=== PATIENT | female | born 2000 | race Caucasian/White ===

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

== ENCOUNTER 2023-07-29 22:27 | Emergency (ER) | payer OTHER, SELFPAY ==
[2023-07-29 22:34] VITALS: BP 121/75; PULSE 70; RESP 16; TEMP 36.8; O2SAT 98; BMI 30.7
--- NOTE | 2023-07-29 22:59 | ED_ITS ---
Documented by User: SHARLA Arnold 07/30/23 00:42 HPI - Abdominal Pain 2 General: Chief Complaint: Abdominal Pain Stated Complaint: Rt Side Pain Time Seen by Provider: 07/29/23 22:51 Source: patient Mode of arrival: ambulatory Limitations: no limitations History of Present Illness: Patient is a 22-year-old female presenting to the emergency department complaining of right lower quadrant abdominal pain beginning last night. Patient notes that the pain began periumbilically and has now radiated down into the right lower quadrant. It has worsened since onset last night, and she notes being seen for the pain at [facility] urgent care this morning and only being tested with a urinalysis. She states that since the pain has only worsened and she is now having some nausea and subjective low-grade temperatures. She states that the pain feels like someone is stabbing her in the right lower quadrant, and nothing she has tried has helped alleviate her pain. She denies any urinary symptoms, back pain, vomiting, changes in bowel habits, or any other symptoms at this time. Patient notes that she still has her appendix and gallbladder. MD elicited complaint: abdominal pain Pertinent past history: none Onset (ago): day(s) (1) Pain Consistency: constant Location: Periumbilical and RLQ Severity: moderate Quality: stabbing Relieving factors: nothing Associated Symptoms: Reports fever(s) and nausea; Denies chills, constipation, diarrhea, dysuria and vomiting Review of Systems 2 General: Reports: 10 or more systems reviewed and unremarkable except in HPI and below Const: Reports: fever(s); Denies: chills or fatigue Eyes: Denies: change in vision ENMT: Denies: throat pain, ear or mastoid pain or nasal discharge Card: Denies: chest pain, palpitations, swelling of feet/ankles or lightheadedness Resp: Denies: dyspnea, productive cough or wheezing GI: Reports: abdominal pain and nausea; Denies: vomiting, diarrhea or constipation : Denies: flank pain, difficulty voiding, dysuria or urinary frequency Musc: Denies: neck pain, back pain or joint pain Skin/Breast: Denies: rash Neuro: Denies: headache(s), numbness in extremities or weakness in extremities PFSH ED 2 PFSH: Medical History Depression Patient denies medical problems Denies history of htn,dm,heart,lung,liver,kidney,thyroid,dvt/pe Surgical History History of tonsillectomy and adenoidectomy (~2006) Family History Grandmother Breast cancer Maternal Hypercholesterolemia maternal Hypertension maternal Thyroid disease Maternal Family/Other Colon cancer Maternal Uncle Maternal Great uncle Diabetes maternal aunt Heart disease Maternal uncle Hypercholesterolemia maternal uncle Hypertension Maternal uncle Mother Hypercholesterolemia Hypertension Grandfather Hypercholesterolemia maternal Hypertension maternal Denies family history of Uterine cancer Social History Smoking and tobacco/nicotine status: never used tobacco/nicotine Alcohol intake: current Alcohol intake frequency: holidays/special occasions only Substance/Drug Use: never Additional social history: - Tobacco use: Never Alcohol use: Socially Drug use: Never Physical Exam 2 Const: COMMON NORMALS: no acute distress, average body habitus, patient oriented x3, no limitations, healthy appearing, alert and well nourished G ENERAL APPEARANCE: cooperative and comfortable ORIENTATION/CONSCIOUSNESS: Yes awake HENMT: COMMON NORMALS: normocephalic, atraumatic, hearing grossly normal bilaterally, external ears normal, Normal external nose present, Normal nasal mucous membranes and turbinates present and moist oral mucous membranes HEAD & SCALP: normocephalic and atraumatic NOSE: Normal external nose present and Normal nasal mucous membranes and turbinates present EXTERNAL EAR: Yes external ears normal Eye: COMMON NORMALS: Equal, round and reactive pupils present, EOMs intact bilaterally, conjunctivae normal and normal visual lester by confrontation C ONJUNCTIVA: Yes conjunctivae normal PUPIL: Yes Equal, round and reactive pupils present Neck/C-Spine: COMMON NORMALS: full ROM, supple, no meningeal signs and no JVD Resp: COMMON NORMALS: normal respiratory effort, No retractions, No use of accessory muscles and clear to auscultation bilaterally AUSCULTATION: clear to auscultation bilaterally, no crackles, no rales, no rhonchi and no wheezes Cardio: COMMON NORMALS: no JVD, regular rate, regular rhythm, S1 normal heart sound present, S2 normal heart sound present, No gallops present (Cardio), No clicks present (Cardio), No murmurs present (Cardio), No rub (Cardio) and Peripheral pulses 2+ throughout RATE: regular rate RHYTHM: regular rhythm HEART SOUNDS: S1 normal heart sound present and S2 normal heart sound present PERIPHERAL PULSES: Peripheral pulses 2+ throughout GI: COMMON NORMALS: Normal to inspection, nondistended, normoactive bowel sounds present, Soft to palpation, No hepatosplenomegaly present and no masses AUSCULTATION: Yes normoactive bowel sounds PALPATION: Yes Soft to palpation, Yes Tenderness to palpation present (GI) Details: RLQ (Positive McBurney's point tenderness, positive Rovsing's), No Guarding due to palpation present (GI), No Rigid due to palpation and Yes No hepatosplenomegaly present RECTAL EXAM: d eferred : COMMON NORMALS: Yes no CVA tenderness BLADDER/KIDNEY EXAM: Yes no CVA tenderness Back/Pelvis: COMMON NORMALS: no CVA tenderness Extremity: COMMON NORMALS: normal to inspection and full ROM Neuro: COMMON NORMALS: patient oriented x3, moves all extremities, no focal motor deficits and no sensory deficits noted SENSORIUM/ORIENTATION: Yes alert MENINGEAL SIGNS: Yes no meningeal signs Psych: COMMON NORMALS: mental status grossly normal, cooperative and speech normal SPEECH: Yes normal speech Skin: COMMON NORMALS: no rashes or lesions noted GENERAL SKIN EXAM: no rashes or lesions noted Course 2 Vital Signs: Vital signs: Vital Signs Temperature 98.3 F 07/30/23 00:49 Pulse Rate 70 07/30/23 00:49 Respiratory Rate 16 07/30/23 00:49 Blood Pressure 121/75 07/30/23 00:49 Pulse Oximetry 98 07/30/23 00:49 Oxygen Delivery Me thod Room Air 07/29/23 22:34 MDM - Abdominal Pain Medical Decision Making This patient seen and evaluated in the emergency department today due to 1 day of right lower quadrant pain. Patient had previously been assessed at [facility], but was sent home after only giving UA. On arrival patient's vitals normal and she was afebrile. Exam positive for right lower quadrant tenderness palpation, specifically over McBurney's point and with an associated Rovsing's. CBC and CMP unremarkable. Lipase normal. negative. Clinically I was suspicious of an appendicitis, however CT demonstrated normal appendix and was ultimately unremarkable. There was evidence of a small ovarian cyst with tiny amount of cul-de-sac fluid, and I believe patient's pain could potentially be due to a ruptured ovarian cyst. Additionally her UA showed some evidence of a urinary tract infection, which could also contribute to some pain. Regardless, we will start the patient on an antibiotic and informed her to return if she develops any new or concerning symptoms. Patient agrees with this plan and will be discharged home. Lab Data I reviewed the patient's lab results. 07/29/23 23:15 07/29/23 23:32 Labs/Radiology: Radiology Impressions Abdomen/Pelvis CT 07/29/23 22:59 IMPRESSION: 1. Normal appendix. 2. Gastric distension. 3. No free air or significant bowel distention. 4. The right ovary contains a 22 x 14 x 20 mm dominant follicle versus very small cyst. Trace amount of cul-de-sac fluid. 5. Other findings discussed above. Laboratory Results WBC 10.49 10^3/uL (4.5-13.0) 07/29/23 23:15 RBC 4.80 10^6/uL (3.85-5.65) 07/29/23 23:15 Hgb 14.70 g/dL (12.4-14.8) 07/29/23 23:15 Hct 44.2 % (36-47) 07/29/23 23:15 MCV 92.1 fl (85-98) 07/29/23 23:15 MCH 30.6 pg (27-33) 07/29/23 23:15 MCHC 33.3 g/dL (30-55) 07/29/23 23:15 RDW 17.1 % (12.1-15.1) H 07/29/23 23:15 Plt Count 416 10^3/cmm (157-399) H 07/29/23 23:15 MPV 9.9 fL (7.4-10.4) 07/29/23 23:15 Neut % (Auto) 61.3 % 07/29/23 23:15 Lymph % (Auto) 32.2 % 07/29/23 23:15 [place] % (Auto) 4.9 % 07/29/23 23:15 Eos % (Auto) 1.0 % 07/29/23 23:15 Baso % (Auto) 0.3 % 07/29/23 23:15 Neut # (Auto) 6.43 10^3/uL (1.8-8.0) 07/29/23 23:15 Lymph # (Auto) 3.4 10^3/uL (1.5-6.5) 07/29/23 23:15 [place] # (Auto) 0.5 10^3/uL (0.2-0.9) 07/29/23 23:15 Eos # (Auto) 0.1 10^3/uL (0.0-0.8) 07/29/23 23:15 Baso # (Auto) 0.0 10^3/uL (0.0-0.1) 07/29/23 23:15 Nucleated RBC % (auto) 0 % 07/29/23 23:15 Nucleated RBCs # 0.0 /100WBC 07/29/23 23:15 Sodium 139 mmol/L (136-145) 07/29/23 23:32 Potassium 4.0 mmol/L (3.5-5.1) 07/29/23 23:32 Chloride 104 mmol/L (98-107) 07/29/23 23:32 Carbon Dioxide 25 mmol/L (22-29) 07/29/23 23:32 Anion Gap 14.0 (5-19) 07/29/23 23:32 BUN 12 mg/dL (6-20) 07/29/23 23:32 Creatinine 0.9 mg/dL (0.5-0.9) 07/29/23 23:32 GFR Calculation 79.8 mL/min (90-130) L 07/29/23 23:32 Glucose 87 mg/dL (65-115) 07/29/23 23:32 Calculated Osmolality 287 mOsm/kg (285-295) 07/29/23 23:32 Calcium 9.0 mg/dL (8.5-10.5) 07/29/23 23:32 Total Bilirubin 0.3 mg/dL (0.15-1.2) 07/29/23 23:32 AST 16 U/L (0-32) 07/29/23 23:32 ALT 35 U/L (0-33) H 07/29/23 23:32 Alkaline Phosphatase 88 U/L (35-105) 07/29/23 23:32 Total Protein 6.9 g/dL (6.6-8.7) 07/29/23 23:32 Albumin 4.3 g/dL (3.5-5.2) 07/29/23 23:32 Globulin 2.6 g/dL (1.3-4.6) 07/29/23 23:32 Lipase 25 U/L (13-60) 07/29/23 23:32 HCG, Qual Negative (Negative) 07/29/23 23:32 Urine Color Yellow (Yellow) 07/29/23 23:35 Urine Appearance Hazy (CLEAR) A 07/29/23 23:35 Urine pH 6 (5-7) 07/29/23 23:35 Ur Specific [place] 1.015 (1.005-1.030) 07/29/23 23:35 Urine Protein Neg (Negative) 07/29/23 23:35 Urine Glucose (UA) Norm (Normal) 07/29/23 23:35 Urine Ketones Negative (Negative) 07/29/23 23:35 Urine Blood Neg (Negative) 07/29/23 23:35 Urine Nitrate Negative (Negative) 07/29/23 23:35 Urine Bilirubin Neg (Negative) 07/29/23 23:35 Urine Urobilinogen Neg mg/dL (Negative) 07/29/23 23:35 Ur Leukocyte Esterase Trace (Negative) H 07/29/23 23:35 Urine RBC 0-4 /hpf (0-2) H 07/29/23 23:35 Urine WBC 5-10 /hpf (0-5) H 07/29/23 23:35 Ur Squamous Epith Cells 5-10 /hpf (0-5) H 07/29/23 23:35 Amorphous Sediment Not Reportable 07/29/23 23:35 Urine Bacteria 2+ /hpf (NONE) H 07/29/23 23:35 Urine Mucus Trace /hpf 07/29/23 23:35 Urine Yeast Trace /hpf 07/29/23 23:35 All radiology interpretation(s) finalized by discharge Discharge Plan Discharge Patient Disposition: Home Clinical Impression: Ovarian cyst rupture Urinary tract infection Qualifiers: Urinary tract infection type: acute cystitis Hematuria presence: without hematuria Qualified Code(s): N30.00 - Acute cystitis without hematuria Condition: Stable Prescriptions: No Action omeprazole 20 mg capsule,delayed release(DR/EC) 20 mg PO .as needed PRN ofloxacin 0.3 % drops 2 drp ophthalmic (eye) BID 7 Days Qty: 5 0RF Rx Instructions: 340b mupirocin 2 % ointment 1 applic topical BID Qty: 22 0RF cimetidine 800 mg tablet 800 mg PO TID 30 Days Qty: 90 0RF Rx Instructions: administer with meals fluorouracil [Efudex] 5 % cream 1 applic topical BID 28 Days Qty: 40 0RF imiquimod 5 % cream in packet 1 applic topical ONCE Qty: 12 0RF cephalexin 500 mg capsule 500 mg PO BID 7 Days Qty: 14 0RF metformin 500 mg tablet 500 mg PO DAILY Qty: 30 6RF Discharge Orders: Discharge ED (Routine); Ordered 07/30/23 Ordered By: Andrei Banks Referrals: Maddy Arthur FNP [Primary Care Provider] - Discharge Diet: Usual diet Discharge Activity: Increase activity as tolerated Patient Instructions: Urinary Tract Infection in Women (ED), Ruptured Ovarian Cyst (ED) Activity Restrictions/Additional Instructions: Take Macrobid as prescribed. Plenty of fluids. Follow-up with your primary care provider. Return with any new or concerning symptoms. Coding Level of Care Code ED Microarray Specialist for Chg Fwd Documented by User: Krishna Tapia DO 08/05/23 08:14 HPI - Abdominal Pain 2 General: Chief Complaint: Abdominal Pain Stated Complaint: Rt Side Pain Time Seen by Provider: 07/29/23 22:51 PFSH ED 2 PFSH: Medical History Depression Patient denies medical problems Denies history of htn,dm,heart,lung,liver,kidney,thyroid,dvt/pe Surgical History History of tonsillectomy and adenoidectomy (~2006) Family History Grandmother Breast cancer Maternal Hypercholesterolemia maternal Hypertension maternal Thyroid disease Maternal Family/Other Colon cancer Maternal Uncle Maternal Great uncle Diabetes maternal aunt Heart disease Maternal uncle Hypercholesterolemia maternal uncle Hypertension Maternal uncle Mother Hypercholesterolemia Hypertension Grandfather Hypercholesterolemia maternal Hypertension maternal Denies family history of Uterine cancer Social History Smoking and tobacco/nicotine status: never used tobacco/nicotine Alcohol intake: current Alcohol intake frequency: holidays/special occasions only Substance/Drug Use: never Additional social history: - Tobacco use: Never Alcohol use: Socially Drug use: Never Course 2 Vital Signs: Vital signs: Vital Signs Temperature 98.3 F 07/30/23 00:49 Pulse Rate 70 07/30/23 00:49 Respiratory Rate 16 07/30/23 00:49 Blood Pressure 121/75 07/30/23 00:49 Pulse Oximetry 98 07/30/23 00:49 Oxygen Delivery Me thod Room Air 07/29/23 22:34 MDM - Abdominal Pain Medical Decision Making This patient seen and evaluated in the emergency department today due to 1 day of right lower quadrant pain. Patient had previously been assessed at [facility], but was sent home after only giving UA. On arrival patient's vitals normal and she was afebrile. Exam positive for right lower quadrant tenderness palpation, specifically over McBurney's point and with an associated Rovsing's. CBC and CMP unremarkable. Lipase normal. negative. Clinically I was suspicious of an appendicitis, however CT demonstrated normal appendix and was ultimately unremarkable. There was evidence of a small ovarian cyst with tiny amount of cul-de-sac fluid, and I believe patient's pain could potentially be due to a ruptured ovarian cyst. Additionally her UA showed some evidence of a urinary tract infection, which could also contribute to some pain. Regardless, we will start the patient on an antibiotic and informed her to return if she develops any new or concerning symptoms. Patient agrees with this plan and will be discharged home. Chart reviewed Lab Data 07/29/23 23:15 07/29/23 23:32 Labs/Radiology: Radiology Impressions Abdomen/Pelvis CT 07/29/23 22:59 IMPRESSION: 1. Normal appendix. 2. Gastric distension. 3. No free air or significant bowel distention. 4. The right ovary contains a 22 x 14 x 20 mm dominant follicle versus very small cyst. Trace amount of cul-de-sac fluid. 5. Other findings discussed above. Laboratory Results WBC 10.49 10^3/uL (4.5-13.0) 07/29/23 23:15 RBC 4.80 10^6/uL (3.85-5.65) 07/29/23 23:15 Hgb 14.70 g/dL (12.4-14.8) 07/29/23 23:15 Hct 44.2 % (36-47) 07/29/23 23:15 MCV 92.1 fl (85-98) 07/29/23 23:15 MCH 30.6 pg (27-33) 07/29/23 23:15 MCHC 33.3 g/dL (30-55) 07/29/23 23:15 RDW 17.1 % (12.1-15.1) H 07/29/23 23:15 Plt Count 416 10^3/cmm (157-399) H 07/29/23 23:15 MPV 9.9 fL (7.4-10.4) 07/29/23 23:15 Neut % (Auto) 61.3 % 07/29/23 23:15 Lymph % (Auto) 32.2 % 07/29/23 23:15 [place] % (Auto) 4.9 % 07/29/23 23:15 Eos % (Auto) 1.0 % 07/29/23 23:15 Baso % (Auto) 0.3 % 07/29/23 23:15 Neut # (Auto) 6.43 10^3/uL (1.8-8.0) 07/29/23 23:15 Lymph # (Auto) 3.4 10^3/uL (1.5-6.5) 07/29/23 23:15 [place] # (Auto) 0.5 10^3/uL (0.2-0.9) 07/29/23 23:15 Eos # (Auto) 0.1 10^3/uL (0.0-0.8) 07/29/23 23:15 Baso # (Auto) 0.0 10^3/uL (0.0-0.1) 07/29/23 23:15 Nucleated RBC % (auto) 0 % 07/29/23 23:15 Nucleated RBCs # 0.0 /100WBC 07/29/23 23:15 Sodium 139 mmol/L (136-145) 07/29/23 23:32 Potassium 4.0 mmol/L (3.5-5.1) 07/29/23 23:32 Chloride 104 mmol/L (98-107) 07/29/23 23:32 Carbon Dioxide 25 mmol/L (22-29) 07/29/23 23:32 Anion Gap 14.0 (5-19) 07/29/23 23:32 BUN 12 mg/dL (6-20) 07/29/23 23:32 Creatinine 0.9 mg/dL (0.5-0.9) 07/29/23 23:32 GFR Calculation 79.8 mL/min (90-130) L 07/29/23 23:32 Glucose 87 mg/dL (65-115) 07/29/23 23:32 Calculated Osmolality 287 mOsm/kg (285-295) 07/29/23 23:32 Calcium 9.0 mg/dL (8.5-10.5) 07/29/23 23:32 Total Bilirubin 0.3 mg/dL (0.15-1.2) 07/29/23 23:32 AST 16 U/L (0-32) 07/29/23 23:32 ALT 35 U/L (0-33) H 07/29/23 23:32 Alkaline Phosphatase 88 U/L (35-105) 07/29/23 23:32 Total Protein 6.9 g/dL (6.6-8.7) 07/29/23 23:32 Albumin 4.3 g/dL (3.5-5.2) 07/29/23 23:32 Globulin 2.6 g/dL (1.3-4.6) 07/29/23 23:32 Lipase 25 U/L (13-60) 07/29/23 23:32 HCG, Qual Negative (Negative) 07/29/23 23:32 Urine Color Yellow (Yellow) 07/29/23 23:35 Urine Appearance Hazy (CLEAR) A 07/29/23 23:35 Urine pH 6 (5-7) 07/29/23 23:35 Ur Specific [place] 1.015 (1.005-1.030) 07/29/23 23:35 Urine Protein Neg (Negative) 07/29/23 23:35 Urine Glucose (UA) Norm (Normal) 07/29/23 23:35 Urine Ketones Negative (Negative) 07/29/23 23:35 Urine Blood Neg (Negative) 07/29/23 23:35 Urine Nitrate Negative (Negative) 07/29/23 23:35 Urine Bilirubin Neg (Negative) 07/29/23 23:35 Urine Urobilinogen Neg mg/dL (Negative) 07/29/23 23:35 Ur Leukocyte Esterase Trace (Negative) H 07/29/23 23:35 Urine RBC 0-4 /hpf (0-2) H 07/29/23 23:35 Urine WBC 5-10 /hpf (0-5) H 07/29/23 23:35 Ur Squamous Epith Cells 5-10 /hpf (0-5) H 07/29/23 23:35 Amorphous Sediment Not Reportable 07/29/23 23:35 Urine Bacteria 2+ /hpf (NONE) H 07/29/23 23:35 Urine Mucus Trace /hpf 07/29/23 23:35 Urine Yeast Trace /hpf 07/29/23 23:35 Discharge Plan Discharge Patient Disposition: Home Clinical Impression: Ovarian cyst rupture Urinary tract infection Qualifiers: Urinary tract infection type: acute cystitis Hematuria presence: without hematuria Qualified Code(s): N30.00 - Acute cystitis without hematuria Condition: Stable Prescriptions: No Action omeprazole 20 mg capsule,delayed release(DR/EC) 20 mg PO .as needed PRN ofloxacin 0.3 % drops 2 drp ophthalmic (eye) BID 7 Days Qty: 5 0RF Rx Instructions: 340b mupirocin 2 % ointment 1 applic topical BID Qty: 22 0RF cimetidine 800 mg tablet 800 mg PO TID 30 Days Qty: 90 0RF Rx Instructions: administer with meals fluorouracil [Efudex] 5 % cream 1 applic topical BID 28 Days Qty: 40 0RF imiquimod 5 % cream in packet 1 applic topical ONCE Qty: 12 0RF cephalexin 500 mg capsule 500 mg PO BID 7 Days Qty: 14 0RF metformin 500 mg tablet 500 mg PO DAILY Qty: 30 6RF Discharge Orders: Discharge ED (Routine); Ordered 07/30/23 Ordered By: Andrei Banks Referrals: Maddy Arthur FNP [Primary Care Provider] - Discharge Diet: Usual diet Discharge Activity: Increase activity as tolerated Patient Instructions: Urinary Tract Infection in Women (ED), Ruptured Ovarian Cyst (ED) Activity Restrictions/Additional Instructions: Take Macrobid as prescribed. Plenty of fluids. Follow-up with your primary care provider. Return with any new or concerning symptoms. Coding Level of Care Code ED Microarray Specialist for Shelodn Solorzano
--- NOTE | 2023-07-29 22:59 | CTR_ITS ---
PROCEDURE INFORMATION: Exam: CT Abdomen And Pelvis With Contrast Exam date and time: 07/29/2023 11:36 PM Age: 22 years old Clinical indication: Abdominal pain; Localized; Right lower quadrant (rlq); Patient HX: C/O rlq pain TECHNIQUE: Imaging protocol: Computed tomography of the abdomen and pelvis with contrast. Radiation optimization: All CT scans at this facility use at least one of these dose optimization techniques: automated exposure control; mA and/or kV adjustment per patient size (includes targeted exams where dose is matched to clinical indication); or iterative reconstruction. Contrast material: OMNI 350; Contrast volume: 100 ml; Contrast route: INTRAVENOUS (IV); COMPARISON: CT abdomen pelvis w con* [id number] 01/31/2019 11:45 PM RADIATION DOSE METRICS: Total DLP (mGy-cm): 1099.13 FINDINGS: Lungs: The lung bases are clear. Liver: There is fatty infiltration of the liver. Gallbladder and bile ducts: The gallbladder is contracted. No visible gallstones by CT. No biliary tree dilation. Pancreas: Unremarkable. Spleen: Unremarkable. Adrenal glands: Unremarkable. Kidneys and ureters: No hydronephrosis of either kidney. No visible ureteral calculus. 6 mm probable cyst in the upper medial left kidney, unchanged but too small to accurately characterize by CT. Stomach and bowel: The stomach appears fairly prominently distended at the time of scanning. Please correlate clinically. No significant bowel distention. There are no CT findings to strongly suggest diverticulitis colitis. Appendix: The appendix is visualized and appears normal. Intraperitoneal space: No free intraperitoneal air, or generalized ascites. Vasculature: No evidence for abdominal aortic aneurysm. Lymph nodes: No retroperitoneal adenopathy. Urinary bladder: No visible calculus in the urinary bladder. The bladder is essentially empty, limiting other evaluation. Reproductive: The right ovary contains a 22 x 14 x 20 mm dominant follicle versus very small cyst. Significance unlikely due to small size. Trace amount of cul-de-sac fluid. Bones/joints: No significant acute finding. Soft tissues: No significant acute finding. CT/CT abdomen pelvis w con* [id number] IMPRESSION: 1. Normal appendix. 2. Gastric distension. 3. No free air or significant bowel distention. 4. The right ovary contains a 22 x 14 x 20 mm dominant follicle versus very small cyst. Trace amount of cul-de-sac fluid. 5. Other findings discussed above.
[2023-07-29 23:21] LABS: Basophils % 0.3 %; Eosinophils # 0.1 10^3/uL (0.0-0.8); Hematocrit 44.2 % (36-47); Lymphocytes # 3.4 10^3/uL (1.5-6.5); Lymphocytes % 32.2 %; Mean Corpuscular HGB Conc 33.3 g/dL (30-55); Mean Corpuscular Hemoglobin 30.6 pg (27-33); Mean Corpuscular Volume 92.1 fl (85-98); Mean Platelet Volume 9.9 fL (7.4-10.4); Monocytes # 0.5 10^3/uL (0.2-0.9); Monocytes % 4.9 %; Neutrophils # 6.43 10^3/uL (1.8-8.0); Neutrophils % 61.3 %; Nucleated Red Blood Cells % 0 %; Platelet Count 416 10^3/cmm (157-399); Red Cell Distribution Width 17.1 % (12.1-15.1); White Blood Count 10.49 10^3/uL (4.5-13.0)
[2023-07-29] MEDS: iohexol 350 mg/mL 500 mL Btl (per mL) IV (23:38)
[2023-07-29 23:48] LABS: HCG, Serum Qual Negative (Negative)
[2023-07-29 23:55] LABS: Add Urine Culture? Yes; Add Urine Microscopic? YES; Bacteria Urine 2+ /hpf; Bilirubin Urine Neg (Negative); Blood Urine Neg (Negative); Glucose Urine UA Norm (Normal); Ketones Urine Negative (Negative); Leukocyte Esterase Urine Trace (Negative); Mucus Urine TRACE /hpf; Nitrate Urine Negative (Negative); Protein Urine Neg (Negative); RBC Urine 0-4 /hpf (0-2); Specific Gravity, Urine 1.015 (1.005-1.030); Urine Appearance Hazy (CLEAR); Urine Color Yellow (Yellow); Urobilinogen Urine Neg (Negative); pH Urine 6 (5-7)
[2023-07-29 23:58] LABS: Alanine Aminotransferase 35 U/L (0-33); Albumin Level 4.3 g/dL (3.5-5.2); Alkaline Phosphatase 88 U/L (35-105); Aspartate Amino Transferase 16 U/L (0-32); Blood Urea Nitrogen 12 mg/dL (6-20); Carbon Dioxide 25 mmol/L (22-29); Chloride 104 mmol/L (98-107); Creatinine Clr Calc Pharmacy 129.6974; Globulin 2.6 g/dL (1.3-4.6); Glomerular Filtration Rate 79.8 mL/min (90-130); Glucose 87 mg/dL (65-115); Lipase 25 U/L (13-60); Osmolality Calculated 287 mOsm/kg (285-295); Sodium 139 mmol/L (136-145); Total Bilirubin 0.3 mg/dL (0.15-1.2); Total Protein 6.9 g/dL (6.6-8.7)
[2023-07-30] MEDS: nitrofurantoin SR (BID) 100 mg Capsule PO (00:42)
[2023-07-30 00:49] VITALS: BP 121/75; PULSE 70; RESP 16; TEMP 36.8; O2SAT 98
== END 2023-07-30 00:50 | disposition home or self-care (01) ==
PROVIDERS: Emergency Provider Physician Assistant; PCP Nurse Practitioner Family
DX: N30.00 Acute cystitis without hematuria (principal); N83.201 Unspecified ovarian cyst, right side; Z79.84 Long term (current) use of oral hypoglycemic drugs
CPT/HCPCS: 74177; 80053; 81001; 83690; 84703; 85025; 87086; 99285; Q9967

== ENCOUNTER → 2024-10-10 13:45 | Outpatient (BNVA) | payer OTHER, SELFPAY | PROVIDERS: PCP Nurse Practitioner Family | DX: L02.91 Cutaneous abscess, unspecified (principal) | CPT/HCPCS: 87070; 87075; 87205 ==

== ENCOUNTER 2024-10-20 01:30 | Emergency (ER) | payer OTHER, SELFPAY ==
[2024-10-20 01:38] VITALS: BP 119/74; PULSE 98; RESP 20; TEMP 36.7; O2SAT 99; BMI 30.4
[2024-10-20 02:00] VITALS: BP 128/62; PULSE 77; RESP 16; O2SAT 99
--- NOTE | 2024-10-20 02:27 | ED_ITS ---
HPI - General Adult General: Chief complaint: General Medical Stated complaint: sun burn is unbearable, nothing is helping Time Seen by Provider: 10/20/24 02:14 History of Present Illness: 24-year-old healthy female who [place] float ing [place]. She got sunburn, particularly on her legs. She has intense pain to the legs. She has tried aloe vera, vinegar, lotions, without relief. No significant blistering or draining. No significant frost other places. Related Data Home Medications ?Medication ?Instructions ?Recorded ?Confirmed omeprazole 20 mg capsule,delayed 20 mg PO .as needed P RN 06/02/20 10/10/24 release clindamycin phosphate 1 % topical 1 applic topical LUIS ALBERTO LY PRN 05/28/24 10/10/24 gel hydroxyzine HCl 25 mg tablet 25 mg PO TID PRN 05/28/24 10/10/24 venlafaxine 37.5 mg tablet 37.5 mg PO DAILY 05/28/24 0 10/10/24 Previous Rx's ?Medication ?Instructions ?Recorded albuterol sulfate 90 mcg/actuation 2 puff inhalation Q 6H PRN 05/28/24 aerosol inhaler shortness of breath or wheez ing #8.5 grams clindamycin HCl 150 mg capsule 450 mg (3 x 150 mg) PO TID 7 days 10/10/24 (Cleocin HCl) #63 caps hydrocodone 5 mg-acetaminophen 325 1 tab PO Q8H PRN pa in #7 tabs 10/20/24 mg tablet mupirocin 2 % topical ointment 1 applic topical TID 5 days #60 10/20/24 grams naproxen 500 mg tablet 500 mg PO BID PRN pain #20 t abs 10/20/24 Allergies Allergy/AdvReac Type Severity Reaction Status Date / Time Penicillins Allergy ALGY-Rash Verified 10/10/24 13:14 Sulfa (Sulfonamide Allergy ALGY-Rash Verified 10/10/24 13:14 Antibiotics) [facility] ED PFSH: Medical History Depression Patient denies medical problems Denies history of htn,dm,heart,lung,liver,kidney,thyroid,dvt/pe Surgical History History of tonsillectomy and adenoidectomy (~2006) Family History Grandmother Breast cancer Maternal Hypercholesterolemia maternal Hypertension maternal Thyroid disease Maternal Family/Other Colon cancer Maternal Uncle Maternal Great uncle Diabetes maternal aunt Heart disease Maternal uncle Hypercholesterolemia maternal uncle Hypertension Maternal uncle Mother Hypercholesterolemia Hypertension Grandfather Hypercholesterolemia maternal Hypertension maternal Denies family history of Uterine cancer Social History Smoking and tobacco/nicotine status: never used tobacco/nicotine Alcohol intake: current Alcohol intake frequency: holidays/special occasions only Substance/Drug Use: never Additional social history: - Tobacco use: Never Alcohol use: Socially Drug use: Never Physical Exam Const: COMMON NORMALS: no acute distress GENERAL APPEARANCE: cooperative; not ill appearing and not frail appearing HENMT: COMMON NORMALS: normocephalic, atraumatic and Normal external nose present HEAD & SCALP: normocephalic and atraumatic FACE & SINUS: normal facial exam and face symmetric NOSE: Normal external nose present Eye: COMMON NORMALS: Equal, round and reactive pupils present and EOMs intact bilaterally PUPIL: Yes Equal, round and reactive pupils present Neck/C-Spine: GENERAL: Yes trachea midline Chest: CHEST: Yes Symmetrical chest wall rise Resp: COMMON NORMALS: normal respiratory effort, No retractions, No use of accessory muscles and clear to auscultation bilaterally AUSCULTATION: clear to auscultation bilaterally Cardio: COMMON NORMALS: regular rate and regular rhythm RATE: regular rate RHYTHM: regular rhythm Extremity: COMMON NORMALS: no pedal edema Neuro: YAEL COMA SCALE: document GCS findings Otwell coma scale eye opening: Spontaneous Yael coma scale verbal response: Orientated Yael coma scale motor response: Obey commands Otwell coma scale total score: 15 SENSORY EXAM: Yes extremities (intact) Psych: COMMON NORMALS: speech normal SPEECH: Yes normal speech Skin: NARRATIVE SKIN EXAM: Bilateral lower extremity BP first-degree sunburn. No blistering, no drainage. Course Vital Signs: Vital signs: Vital Signs Temperature 98.1 F 10/20/24 01:38 Pulse Rate 77 10/20/24 03:39 Respiratory Rate 16 10/20/24 03:39 Blood Pressure 118/72 10/20/24 03:39 Pulse Oximetry 99 10/20/24 03:39 Oxygen Delivery Me thod Room Air 10/20/24 02:00 MDM - General Adult Medical Decision Making Significant sunburn, without blistering, to bilateral lower extremities. Pain control, continue with topical treatment. No radiology studies performed this visit Discharge Plan Discharge Patient Disposition: Home Clinical Impression: Sunburn Condition: Stable Prescriptions: New hydrocodone-acetaminophen 5-325 mg tablet 1 tab PO Q8H PRN (Reason: pain) Qty: 7 0RF naproxen 500 mg tablet 500 mg PO BID PRN (Reason: pain) Qty: 20 0RF Continued mupirocin 2 % ointment 1 applic topical TID 5 Days Qty: 60 0RF No Action omeprazole 20 mg capsule,delayed release(DR/EC) 20 mg PO .as needed PRN clindamycin phosphate 1 % gel 1 applic topical DAILY PRN venlafaxine 37.5 mg tablet 37.5 mg PO DAILY hydroxyzine HCl 25 mg tablet 25 mg PO TID PRN albuterol sulfate 90 mcg/actuation HFA aerosol inhaler 2 puff inhalation Q6H PRN (Reason: shortness of breath or wheezing) Qty: 8.5 0RF clindamycin HCl [Cleocin HCl] 150 mg capsule 450 mg PO TID 7 Days Qty: 63 0RF Discharge Orders: Discharge ED (Routine); Ordered 10/20/24 Ordered By: Jabier Cline Referrals: Maddy Arthur, HOSPITAL ATTENDANT [Primary Care Provider, Unknown] - 1-3 days Patient Instructions: Sunburn (ED), Opioid Safety, Pain Management Activity Restrictions/Additional Instructions: Avoid ice, as it may cause reflexive swelling and pain when ice is taken off. Use ointment up to 3 times daily. Pain medication as needed. You can alternate the 2 prescribed. Elevate your legs. You may use any other topical treatments you feel improve symptoms. See your doctor next week. 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
[2024-10-20] MEDS: ketorolac 10 mg Tablet PO (02:37)
[2024-10-20] MEDS: ondansetron 4 MG Tablet PO (02:37)
[2024-10-20] MEDS: HYDROmorphone 0.5 MG/0.5 ML INJ 1 MG IM (02:38)
[2024-10-20 03:39] VITALS: BP 118/72; PULSE 77; RESP 16; O2SAT 99
== END 2024-10-20 03:40 | disposition home or self-care (01) ==
PROVIDERS: Emergency Provider Emergency Medicine; PCP Nurse Practitioner Family
DX: L55.9 Sunburn, unspecified (principal)
CPT/HCPCS: 96372; 99284; J1171; J9999; Q0162